=== PATIENT | female | born 1975 | race Caucasian/White ===

== ENCOUNTER 2017-07-29 08:12 | Day surgery (SDC) | payer OTHER ==
[~2017-07-29] VITALS: Ht 154.9 cm; Wt 68.0 kg
== END 2017-07-29 10:40 | disposition home or self-care (01) ==
LOC: MMU 08:12 → MDS 08:12
PROVIDERS: ATTEND Surgery
DX: N60.01 Solitary cyst of right breast (principal)
CPT/HCPCS: 19000; 76641; 76942; 88104; Q0092; 10060; J7120

== ENCOUNTER 2018-08-12 12:06 | Emergency (ER) | payer MEDICAID, OTHER ==
[~2018-08-12] VITALS: Ht 154.9 cm; Wt 72.6 kg
[2018-08-12 12:12] VITALS: BP 113/61
--- NOTE | 2018-08-12 12:23 | NUR ---
BIB SELF. PT C/O OF LEFT HAND PAIN AND RIGHT ANKLE PAIN S/P FALL AT [facility] MEET AT 1030 TODAY. DENIES LOC. PT LEFT HAND APPEARS SWOLLEN AND BRUISED, CAP REFILL ON 5TH DIGIT <3 SEC. DENIES N/V/D; SKIN IS PINK/WARM/DRY; AAOX4 WITH EVEN AND STEADY GAIT; LUNGS CLEAR BL; HR EVEN AND REGULAR; PT DENIES ANY FEVER, CP, SOB, OR COUGH AT THIS TIME; PATIENT STATES PAIN OF 5/10 AT THIS TIME; VSS; PATIENT POSITIONED FOR COMFORT; HOB ELEVATED; BEDRAILS UP X2; BED DOWN. ER MD MADE AWARE OF PT STATUS.
--- NOTE | 2018-08-12 12:31 | NUR ---
RAD AT BEDSIDE.
--- NOTE | 2018-08-12 12:35 | NUR ---
Afsaneh trammell in ED - 08/12/[address] FOX AT [facility].
--- NOTE | 2018-08-12 14:35 | NUR ---
DR FOX AT BEDSIDE.
[2018-08-12] MEDS ORDERED: KETOROLAC 60 MG/2 ML VIAL IM ONE (14:45)
--- NOTE | 2018-08-12 15:05 | NUR ---
TECH AT BEDSIDE APPLYING SPLINT.
[2018-08-12 15:13] VITALS: BP 113/61
--- NOTE | 2018-08-12 15:14 | NUR ---
Patient discharged with v/s stable. Written and verbal after care instructions given and explained. Patient alert, oriented and verbalized understanding of instructions. Ambulatory with steady gait. All questions addressed prior to discharge. ID band removed. Patient advised to follow up with PMD. Rx of NORCO, IBUPROFEN given. Patient educated on indication of medication including possible reaction and side effects. Opportunity to ask questions provided and answered.
== END 2018-08-12 15:14 | disposition home or self-care (01) ==
LOC: MED 12:06
DX: S62.617A Displaced fracture of proximal phalanx of left little finger, initial encounter for closed fracture (principal); M25.571 Pain in right ankle and joints of right foot; W19.XXXA Unspecified fall, initial encounter; Y93.89 Activity, other specified; Y92.89 Other specified places as the place of occurrence of the external cause; Y99.8 Other external cause status
CPT/HCPCS: 29130; 73130; 73610; 96372; 99284; J1885; Q0092